=== PATIENT | female | born 1980 | race Caucasian/White ===

== ENCOUNTER 2017-09-28 13:46 | Emergency (ER) | payer OTHER | END 2017-09-28 15:24 | disposition home or self-care (01) | LOC: ER 13:46 | DX: S93.401A Sprain of unspecified ligament of right ankle, initial encounter (principal); X50.9XXA Other and unspecified overexertion or strenuous movements or postures, initial encounter; Y93.89 Activity, other specified; Y99.8 Other external cause status; Y92.89 Other specified places as the place of occurrence of the external cause | CPT/HCPCS: 73610; 99284 ==

== ENCOUNTER 2018-02-19 17:54 | Emergency (ER) | payer BC, OTHER ==
[~2018-02-19] VITALS: Ht 170.2 cm; Wt 81.6 kg
[2018-02-19 19:06] VITALS: BP 145/91
[2018-02-19] MEDS ORDERED: DEXAMETHASONE SOD PHOS 4 MG/ML VIAL IM ONE (19:30)
[2018-02-19] MEDS ORDERED: PRED20TA PO (19:43)
--- NOTE | 2018-02-20 03:43 | PHYS DOC ---
Past Medical History Past Medical History: Asthma, Other Additional Past Medical Histor: eclampsia, HELP syndrome, antiphospholipid antibody syndrome Past Surgical History: Other Additional Past Surgical Histo: Laparascopic Knee Surgery, Adenoidectomy Alcohol Use: None Drug Use: None Adult General Chief Complaint Chief Complaint: ASTHMA HPI HPI Patient is a 38 year old female who presents with asthma exacerbation. The patient has a known history of asthma. She is followed by her primary care physician. She reports over the last 3-4 days she has had worsening symptoms. She has been using both albuterol inhaler and nebulizer at home. She has been seen by her doctor this week and was placed on steroids although the patient describes herself to be steroid unresponsive. She was placed on 20 mg of prednisone twice daily. She does use inhaled steroids at home as well. She presents to the ER today stating that the only thing that has helped in the past is a shot of steroids. She is not currently wheezing during the interview. Review of Systems Review of Systems Constitutional: Denies fever or chills Eyes: Denies change in visual acuity HENT: Denies nasal congestion or sore throat Respiratory: Denies cough Cardiovascular: No additional information not addressed in HPI Integument: Denies rash Neurologic: Denies headache All other systems were reviewed and found to be within normal limits, except as documented in this note. Current Medications Current Medications Current Medications Medications (Trade) Dose Ordered Sig/Perez Start Time Stop Time Status Last Admin Dose Admin Dexamethasone Sodium Phosphate (Decadron) 8 mg 1X ONCE 02/19/18 19:30 02/19/18 19:31 DC 02/19/18 19:27 8 MG Allergies Allergies Allergies Coded Allergies Type Severity Reaction Last Updated Verified No Known Drug Allergies 02/19/18 No Physical Exam Physical Exam Constitutional: Well developed, well nourished, no acute distress, non-toxic appearance HENT: Normocephalic, atraumatic, bilateral external ears normal, oropharynx moist Eyes: PERRLA Neck: Normal range of motion, no tenderness, supple, no stridor Cardiovascular:Heart rate regular rhythm, no murmur Lungs & Thorax: Bilateral breath sounds clear Skin: Warm, dry, no erythema, no rash Neurologic: Alert and oriented X 3 Psychologic: Affect normal Current Patient Data Vital Signs Vital Signs Date Time Temp Pulse Resp B/P (MAP) Pulse Ox O2 Delivery O2 Flow Rate FiO2 02/19/18 19:06 98.4 82 18 145/91 (109) 99 Room Air 98.4 EKG EKG [] Radiology/Procedures Radiology/Procedures [] Course & Med Decision Making Course & Med Decision Making Pertinent Labs and Imaging studies reviewed. (See chart for details) Patient is evaluated briefly in the ER. Her lungs are completely clear with good air movement in all ma. No need for breathing tx's in the ER today. She is given an injection of steroids in the ER. She is discharged to home and will return to the ER for any new or worsening symptoms. Otherwise, she is advised to continue her normal medication regimen and follow up with her primary care doctor, return to the ER for any new or worsening symptoms. Dragon Disclaimer Dragon Disclaimer This electronic medical record was generated, in whole or in part, using a voice recognition dictation system. Departure Departure Impression: Primary Impression: Asthma exacerbation Disposition: 01 HOME, SELF-CARE Condition: GOOD Patient Instructions: Asthma, Acute Bronchospasm, Asthma Attacks, Prevention Scripts Prednisone (PREDNISONE) 20 Mg Tablet 60 MG PO DAILY for 5 Days, #15 TAB Prov: LEATHA TONEY DO 02/19/18 LEATHA TONEY DO Feb 20, 2018 03:43
== END 2018-02-19 19:47 | disposition home or self-care (01) ==
LOC: ER 17:54
DX: J45.901 Unspecified asthma with (acute) exacerbation (principal); Z98.890 Other specified postprocedural states
CPT/HCPCS: 96372; 99283; J1100